=== PATIENT | female | born 1945 | race Hispanic/Latino ===

== ENCOUNTER 2024-12-18 06:02 | Day surgery (SDC) | payer MEDICARE ==
[~2024-12-18] VITALS: Ht 165.1 cm; Wt 74.8 kg
[2024-12-18] VITALS (11 sets, daily range): BP systolic 141–182; BP diastolic 56–68; PULSE 56–64; RESP 15–17; TEMP 97.6–97.8
[2024-12-18] MEDS ORDERED: proPOFol 10 MG/ML 20ML VIAL IV ONE (08:20)
[2024-12-18] MEDS ORDERED: INSU100I24 SQ (09:38)
[2024-12-18] MEDS ORDERED: LEVO25CA5 PO (09:38)
[2024-12-18] MEDS ORDERED: OLME40TA18 PO ×2 (09:38)
[2024-12-18] MEDS ORDERED: TRAM50TA4 PO (09:38)
[2024-12-18] MEDS ORDERED: ROSU10TA72 PO (09:38)
[2024-12-18] MEDS ORDERED: ERGO500093 PO (09:38)
[2024-12-18] MEDS ORDERED: METO25TA6 PO (09:38)
[2024-12-18] MEDS ORDERED: ESCI5TAB16 PO (09:38)
[2024-12-18] MEDS ORDERED: SERT-438 PO (09:38)
[2024-12-18] MEDS ORDERED: GABA-529 PO (09:38)
[2024-12-18] MEDS ORDERED: DAPA10TA PO (09:38)
[2024-12-18] MEDS ORDERED: OXYB5TAB20 PO (09:38)
[2024-12-18] MEDS: 0.9%NACL 1000ML 1,000 ML IV ONE (11:48)
== END 2024-12-18 09:48 | disposition home or self-care (01) ==
LOC: ENDO 06:02 → DAH 06:02 → ENDO 09:48
PROVIDERS: ATTEND Internal Medicine Gastroenterology
DX: R10.10 Upper abdominal pain, unspecified (principal); K74.60 Unspecified cirrhosis of liver; K29.50 Unspecified chronic gastritis without bleeding; I25.10 Atherosclerotic heart disease of native coronary artery without angina pectoris; I10 Essential (primary) hypertension; E11.9 Type 2 diabetes mellitus without complications; E78.00 Pure hypercholesterolemia, unspecified; Z79.899 Other long term (current) drug therapy; Z98.890 Other specified postprocedural states
CPT/HCPCS: 43239; 82948 ×2; 43242; J7030; J2704; A4620; A4215 ×2; A4657; J3490